=== PATIENT | male | born 1975 | race Caucasian/White ===

== ENCOUNTER 2017-08-14 07:37 | Outpatient (CLI) | payer BC ==
--- NOTE | 2017-08-14 09:36 | CT ---
CT OF ABDOMEN PERFORMED WITH INTRAVENOUS CONTRAST ENHANCEMENT: HISTORY: Left upper abdominal pain x 2 months. CONTRAST: 100 cc of Isovue 370. FINDINGS: The lung bases are clear. There are some fatty changes of the liver. The spleen is slightly enlarged. It measures 15 cm in le ngth. The pancreas shows no evidence of mass or ductal dilatation. Gallbladder region appears unrem arkable. Right and left adrenal glands and right and left kidneys are normal in size and appearance. No signi ficant periaortic or mesenteric adenopathy. There are some slightly prominent periportal nodes with a node that is located just superior to the pancreatic head-body junction which measures 11-12 mm. T here is also a node interposed between the portal vein and IVC. This is nonspecific. IMPRESSION: 1. Mild splenomegaly. 2. Slightly prominent periportal lymph nodes of uncertain significance. 3. Suggestion of fatty changes of the liver. POS: [facility]
== END 2017-08-14 07:38 | disposition home or self-care (01) ==
LOC: SCSCT 07:37
PROVIDERS: ATTEND Internal Medicine Gastroenterology
DX: R10.9 Unspecified abdominal pain (principal); R16.1 Splenomegaly, not elsewhere classified
CPT/HCPCS: 74160

== ENCOUNTER 2019-12-19 14:07 | Outpatient (CLI) | payer BC ==
--- NOTE | 2019-12-19 14:24 | RAD ---
XR Elbow Rt 4 View STANDARD HISTORY: Right elbow pain FINDINGS: No fracture or dislocation is identified. A small olecranon spur is present.
== END 2019-12-19 14:08 | disposition home or self-care (01) ==
LOC: SCSRAD 14:07
PROVIDERS: ATTEND Family Medicine
DX: M77.11 Lateral epicondylitis, right elbow (principal); M77.8 Other enthesopathies, not elsewhere classified

== ENCOUNTER 2020-01-12 12:32 | Outpatient (CLI) | payer BC ==
--- NOTE | 2020-01-12 14:04 | MRI ---
Exam: MRI cervical spine without contrast HISTORY: Cervical radiculopathy. Right arm, shoulder, elbow and finger pain.. COMPARISON: None FINDINGS: Straightening of cervical lordosis is presumed to be positional. No significant STIR hyperintensity to suggest ligamentous injury or vertebral body edema. Appropriate T1 marrow signal intensity of the cervical vertebra. Cervical spine vertebral body height is maintained. No fracture. Visualized br ain parenchyma, cervicomedullary junction, cervical cord and the upper thoracic cord have a normal size and signal intensity. C2-C3: No significant central canal stenosis or significant neural foraminal narrowing C3-C4: No significant central canal stenosis or significant neural foraminal narrowing C4-C5: No significant central canal stenosis or significant neural foraminal narrowing C5-C6: No significant central canal stenosis or significant neural foraminal narrowing C6-C7: No significant central canal stenosis. Mild bilateral foraminal narrowing due to uncovertebral hypertrophy C7-T1: No significant central canal stenosis or significant neural foraminal narrowing IMPRESSION: 1. No significant central canal stenosis throughout the cervical spine 2. Mild bilateral neural foraminal narrowing at C6-C7 due to uncovertebral hypertrophy
== END 2020-01-12 12:33 | disposition home or self-care (01) ==
LOC: SCSMRI 12:32
PROVIDERS: ATTEND Orthopaedic Surgery
DX: M54.12 Radiculopathy, cervical region (principal); M25.521 Pain in right elbow; M48.02 Spinal stenosis, cervical region; M89.38 Hypertrophy of bone, other site
CPT/HCPCS: 72141

== ENCOUNTER 2020-02-21 14:45 | Outpatient (CLI) | payer BC ==
--- NOTE | 2020-02-21 15:16 | RAD ---
Right shoulder 2 views HISTORY: Right shoulder pain. FINDINGS: Acromioclavicular and glenohumeral alignment are maintained. No acute fracture or dislocati on. Mild downsloping of the acromion. Centered within the lateral aspect of the humeral head, a well-circumscribed, slightly lobulated and bubbly lytic lesion with sclerotic margins is unchanged in appearance from the prior exam 08/04/2016. No expansion. No overlying periosteal reaction. This may represent a fibrous lesion or bon e cyst. IMPRESSION : Long-term stable radiographic appearance of the nonaggressive appearing right humeral head lesion. Of doubtful clinical significance.
== END 2020-02-21 14:46 | disposition home or self-care (01) ==
LOC: SCSRAD 14:45
PROVIDERS: ATTEND Nurse Practitioner Family
DX: M25.511 Pain in right shoulder (principal); M89.9 Disorder of bone, unspecified

== ENCOUNTER 2022-11-24 17:30 | Outpatient (CLI) | payer BC | END 2022-11-24 17:31 | disposition home or self-care (01) | LOC: SLEEPLAB 17:30 | PROVIDERS: ATTEND Family Medicine | DX: G47.33 Obstructive sleep apnea (adult) (pediatric) (principal); R06.83 Snoring; E66.9 Obesity, unspecified; R53.83 Other fatigue; I10 Essential (primary) hypertension | CPT/HCPCS: 95800 ==

== ENCOUNTER 2023-05-24 19:00 | Outpatient (CLI) | payer BC | END 2023-05-24 19:01 | disposition home or self-care (01) | LOC: SLEEPLAB 19:00 | PROVIDERS: ATTEND Family Medicine | DX: G47.33 Obstructive sleep apnea (adult) (pediatric) (principal) | CPT/HCPCS: 95811 ==

== ENCOUNTER 2025-08-18 12:12 | Outpatient (CLI) | payer BC | END 2025-08-18 12:13 | disposition home or self-care (01) | LOC: SCSRAD 12:12 | PROVIDERS: ATTEND Family Medicine | DX: M25.551 Pain in right hip (principal); M75.82 Other shoulder lesions, left shoulder ==